=== PATIENT | male | born 1955 | race Caucasian/White ===

== ENCOUNTER 2018-01-01 16:46 | Emergency (ER) | payer OTHER ==
[~2018-01-01] VITALS: Ht 182.9 cm; Wt 116.0 kg
[2018-01-01 16:50] VITALS: BP 152/78; PULSE 62; RESP 16; TEMP 97.4; O2SAT 96
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
[2018-01-01] MEDS ORDERED: METF1000 PO (17:23)
[2018-01-01] MEDS ORDERED: ASPI1TAB57 PO (17:23)
[2018-01-01] MEDS ORDERED: GLIM4TAB PO (17:23)
[2018-01-01] MEDS ORDERED: ATOR20TA15 PO (17:23)
[2018-01-01] MEDS ORDERED: METO100T PO (17:23)
[2018-01-01] MEDS ORDERED: AMLO5TAB2 PO (17:23)
[2018-01-01] MEDS ORDERED: VITA100018 PO (17:23)
[2018-01-01] MEDS ORDERED: MULT-65 PO (17:23)
[2018-01-01] MEDS ORDERED: ENAL20TA PO ×2 (17:23)
[2018-01-01] MEDS ORDERED: FENO145T2 PO (17:23)
[2018-01-01] MEDS ORDERED: EMPA1TAB3 PO (17:23)
[2018-01-01] MEDS ORDERED: OMEGCAP PO (17:23)
[2018-01-01] MEDS ORDERED: OMEP20TA93 PO (17:23)
[2018-01-01] MEDS ORDERED: HYDR25TA5 PO (17:23)
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
== END 2018-01-01 18:12 | disposition home or self-care (01) ==
LOC: PHEFT 16:46
DX: S60.222A Contusion of left hand, initial encounter (principal); S60.221A Contusion of right hand, initial encounter; E11.9 Type 2 diabetes mellitus without complications; W31.89XA Contact with other specified machinery, initial encounter; Z88.2 Allergy status to sulfonamides; Z79.82 Long term (current) use of aspirin; Z79.899 Other long term (current) drug therapy
CPT/HCPCS: 73130; 99283